=== PATIENT | female | born 1960 | race Caucasian/White ===

== ENCOUNTER → 2019-12-27 | Outpatient (CLI) | payer OTHER ==
--- NOTE | 2019-12-27 15:34 | BD ---
EXAMINATION TYPE: Axial Bone Density DATE OF EXAM: 12/27/2019 COMPARISON: NONE CLINICAL HISTORY: Height: 5 FT 3 IN Weight: 177 FRAX RISK QUESTIONS: Alcohol (3 or more units per day): NO Family History (Parent hip fracture): YES Glucocorticoids (More than 3mos): NO (Ex: prednisone, prednisolone, methylprednisolone, dexamethasone, and hydrocortisone). History of Fracture in Adulthood: NO Secondary Osteoporosis: 1. Type 1 Diabetes: NO 2. Hyperthyroidism: NO 3. Menopause before 45: NO 4. Malnutrition: NO 5. Chronic liver disease: NO Rheumatoid Arthritis: NO Current Tobacco Use: YES RISK FACTORS HISTORY OF: Family History of Osteoporosis: YES Active: YES Postmenopausal woman: BETWEEN 46- 49 MEDICATIONS: Thyroid Medications: YES Which medication: SYNTHROID How Long: APPROX 10 YEARS Additional Medications: SYNTHROID,PREVACID, ZOLOFT, Additional History: EXAM MEASUREMENTS: Bone mineral densitometry was performed using the [employer]. Bone mineral density as measured about the Lumbar spine is: ----- L1-L4(G/cm2): 0.983 T Score Values are as follows: ----- L2: -2.5 ----- L3: -1.6 ----- L4: -0.8 ----- L1-L4: -1.6 Bone mineral density has: INCREASED 21.1 % since study of: 2008 Bone mineral density about the R hip (g/cm2): 0.903 Bone mineral density about the L hip (g/cm2): 0.883 T Score values are as follows: -----R Neck: -1.0 -----L Neck: -1.1 -----R Total: -0.5 -----L Total: -0.5 Bone mineral density has: INCREASED 1.7 % since study of: 2008 IMPRESSION: Osteopenia (T Score between -2.5 and -1). There is slightly increased risk of fracture and the patient may be considered for treatment. Re-Screen 2-5 years. NOTE: T-SCORE=SD OF THE YOUNG ADULT MEAN.
--- NOTE | 2019-12-31 11:40 | MM ---
Reason for exam: screening (asymptomatic). Last mammogram was performed 14 years and 7 months ago. History: Patient is postmenopausal and is nulliparous. Family history of breast cancer in paternal aunt and breast cancer in paternal cousin. Took hormonal contraceptives for 6 years. Physical Findings: A clinical breast exam by your physician is recommended on an annual basis and results should be correlated with mammographic findings. MG Screening Mammo w CAD Bilateral CC and MLO view(s) were taken. Prior study comparison: June 09, 2005, bilateral screening mammogram w/CAD. There are scattered fibroglandular densities. Finding #1: There is a mass located 5.4 cm from the nipple in the upper inner quadrant, middle position of the left breast. Finding #2: There are typically benign vascular calcifications in both breasts. ASSESSMENT: Incomplete: need additional imaging evaluation, BI-RAD 0 RECOMMENDATION: Special view mammogram of the left breast. If lesion persists on supplemental views, image directed ultrasound is recommended. [facility] will attempt to contact patient to return for supplemental views and ultrasound if indicated.
== END | disposition home or self-care (01) ==
LOC: RADMAMWWP 11:40
PROVIDERS: ATTEND Internal Medicine
DX: Z12.31 Encounter for screening mammogram for malignant neoplasm of breast (principal); M85.80 Other specified disorders of bone density and structure, unspecified site
CPT/HCPCS: 77067; 77080

== ENCOUNTER → 2020-01-17 | Outpatient (CLI) | payer OTHER ==
--- NOTE | 2020-01-17 15:07 | MM ---
Reason for exam: additional evaluation requested from abnormal screening. Last mammogram was performed 1 month ago. History: Patient is postmenopausal and is nulliparous. Family history of breast cancer in paternal aunt and breast cancer in paternal cousin at age 60. Took hormonal contraceptives for 6 years. Physical Findings: Nurse did not find any significant physical abnormalities on exam. MG Work Up Mamm w CAD LT Spot compression CC, spot compression MLO, and LM view(s) were taken of the left breast. Prior study comparison: December 27, 2019, bilateral MG screening mammo w CAD. There are scattered fibroglandular densities. These results were verbally communicated with the patient and result sheet given to the patient on 01/17/20. ASSESSMENT: Probably benign, BI-RAD 3 RECOMMENDATION: Follow-up diagnostic mammogram of the left breast in 6 months.
== END | disposition home or self-care (01) ==
LOC: RADMAMWWP 13:43
PROVIDERS: ATTEND Internal Medicine
DX: R92.8 Other abnormal and inconclusive findings on diagnostic imaging of breast (principal)
CPT/HCPCS: 77065